=== PATIENT | male | born 1935 | race Caucasian/White ===

== ENCOUNTER 2018-07-04 12:31 | Emergency (ER) | payer MEDICARE | END 2018-07-04 15:59 | disposition home or self-care (01) | LOC: EDH 12:31 | DX: S80.01XA Contusion of right knee, initial encounter (principal); S89.81XA Other specified injuries of right lower leg, initial encounter; I10 Essential (primary) hypertension; I48.91 Unspecified atrial fibrillation; Z87.891 Personal history of nicotine dependence; Z88.8 Allergy status to other drugs, medicaments and biological substances; W18.39XA Other fall on same level, initial encounter; Y93.89 Activity, other specified; Y92.098 Other place in other non-institutional residence as the place of occurrence of the external cause; Y99.8 Other external cause status | CPT/HCPCS: 73562; 73610; 93971 ==

== ENCOUNTER 2019-06-23 09:44 | Emergency (ER) | payer MEDICARE ==
[2019-06-23 10:41] LABS: BASOPHILS % (AUTO) 0.8 % (0.0-5.0); HEMATOCRIT 39.8 % (42-54); LYMPHOCYTES % (AUTO) 13.3 % (21.0-51.0); MEAN CORPUSCULAR HEMOGLOBIN 29.9 pg (27.0-33.0); MEAN CORPUSCULAR VOLUME 90.6 fL (79-99); MONOCYTES % (AUTO) 14.4 % (3.0-13.0); NEUTROPHILS % (AUTO) 70.5 % (40.0-77.0); PLATELET COUNT (AUTO) 192 K/uL (130-400); RED BLOOD CELL COUNT(AUTO) 4.39 MIL/uL (4.50-6.20); WHITE BLOOD COUNT (AUTO) 9.1 K/uL (4.8-10.8)
[2019-06-23 10:44] LABS: CREATININE 1.1 mg/dL (0.5-1.5); POTASSIUM 3.9 mmol/L (3.5-5.1)
[2019-06-23 10:48] LABS: ALBUMIN 3.5 g/dL (3.5-5.0); BILIRUBIN,TOTAL 0.7 mg/dL (0.2-1.0); TOTAL PROTEIN, SERUM 7.2 g/dL (6.0-8.3)
[2019-06-23 11:32] LABS: B-TYPE NATRIURETIC PEPTIDE 51 pg/mL (0-100)
== END 2019-06-23 12:18 | disposition home or self-care (01) ==
LOC: EDH 09:44
DX: R05 Cough (principal); R07.89 Other chest pain; R50.9 Fever, unspecified; I48.91 Unspecified atrial fibrillation; I10 Essential (primary) hypertension; Z88.8 Allergy status to other drugs, medicaments and biological substances; Z87.891 Personal history of nicotine dependence; Z95.0 Presence of cardiac pacemaker
CPT/HCPCS: 36415; 71045; 80053; 83880; 84484; 85025; 93005

== ENCOUNTER 2020-10-28 07:55 | Day surgery (SDC) | payer MEDICARE ==
[2020-10-24 14:30] LABS: BASOPHILS % (AUTO) 0.7 % (0.0-5.0); EOSINOPHILS % (AUTO) 1.6 % (0.0-8.0); HEMATOCRIT 38.6 % (42-54); LYMPHOCYTES % (AUTO) 24.6 % (21.0-51.0); MEAN CORPUSCULAR HEMOGLOBIN 29.8 pg (27.0-33.0); MEAN CORPUSCULAR HGB CONC 33.2 g/dL (32.0-36.0); MONOCYTES % (AUTO) 11.2 % (3.0-13.0); NEUTROPHILS % (AUTO) 61.5 % (40.0-77.0); PLATELET COUNT (AUTO) 209 K/uL (130-400); RED BLOOD CELL COUNT(AUTO) 4.29 MIL/uL (4.50-6.20); WHITE BLOOD COUNT (AUTO) 7.3 K/uL (4.8-10.8)
[2020-10-24 14:42] LABS: POTASSIUM 4.1 mmol/L (3.5-5.1)
[2020-10-24 14:52] LABS: INR 2.05 (0.85-1.15); PROTHROMBIN TIME 20.9 SEC (9.6-11.6)
[2020-10-24 14:53] LABS: PARTIAL THROMBOPLASTIN TIME 35.7 SEC (26.3-35.5)
[2020-10-28] VITALS (9 sets, daily range): BP systolic 112–179; BP diastolic 46–86
[~2020-10-28] VITALS: Ht 172.7 cm; Wt 90.8 kg
[~2020-10-28 07:55] MED LIST: AMLO-258 PO; FINA5TAB41 PO; GLUC100019 PO; MAGN100C5 PO; METO75TA PO; OLME40TA18 PO; OMEP20TA25 PO; PHARMACY COMMUNICATION MISC SCH; SAW450CA7 PO; SODIUM CHLORIDE 0.9% 500ML 500 ML IV SCH; TERA10CA4 PO; WARF-57 PO; WARF7.5T49 PO; ZINC50TA64 PO; ZOLP5TAB8 PO
[2020-10-28 08:47] LABS: INR 1.1 (0.85-1.15); PROTHROMBIN TIME 11.9 SEC (9.6-11.6)
[2020-10-28] MEDS ORDERED: MEPERIDINE-PF 25 MG/ML SYG ONE ×2 (14:20→14:27)
[2020-10-28] MEDS ORDERED: MIDAZOLAM HCL 1 MG/ML 2ML VIAL ONE ×2 (14:20→14:28)
[2020-10-28] MEDS ORDERED: CEFAZOLIN SODIUM 1 GM VIAL ONE (14:20)
[2020-10-28] MEDS ORDERED: BUPIVACAINE/PF 0.25% 30ML VIAL IJ ONE (14:20)
[2020-10-28] MEDS ORDERED: LIDOCAINE HCL 1% MDV 50ML VIAL ONE (14:20)
[2020-10-28] MEDS ORDERED: ONDANSETRON HCL 4 MG/2 ML VIAL IV PRN (15:15)
[2020-10-28] MEDS ORDERED: ACETAMINOPHEN-CODEINE 300/30MG TAB PO PRN ×2 (15:15)
[2020-10-28] MEDS ORDERED: CEFAZOLIN SODIUM 1 GM VIAL IVP ONE (18:30)
== END 2020-10-28 19:10 | disposition home or self-care (01) ==
LOC: DAH 07:55
PROVIDERS: ATTEND Internal Medicine Cardiovascular Disease
DX: Z45.010 Encounter for checking and testing of cardiac pacemaker pulse generator [battery] (principal); I49.5 Sick sinus syndrome; I44.0 Atrioventricular block, first degree; I45.10 Unspecified right bundle-branch block; I48.0 Paroxysmal atrial fibrillation; I10 Essential (primary) hypertension; E78.5 Hyperlipidemia, unspecified; Z79.01 Long term (current) use of anticoagulants; Z79.899 Other long term (current) drug therapy; Z98.890 Other specified postprocedural states
CPT/HCPCS: 33228; 36415 ×2; 80048; 85025; 85610 ×2; 85730; 93005; A4215; A4216; A4221; A4222; A4223 ×3; A4606; A4663; C1785; J0690 ×2; J2175 ×2; J2250 ×2; J3490 ×2; J7040; 33229; 96374; 99156; 99157